=== PATIENT | female | born 1970 | race Caucasian/White ===

== ENCOUNTER → 2020-05-02 | Outpatient (CLI) | payer OTHER ==
--- NOTE | 2020-05-28 08:10 | SLEEP ---
[address] [address] SLEEP STUDY REPORT Name: MIRIAM GONZALEZ [id number] Admission: 05/02/20 Attend Phys: Lise Retana Discharge: Date of : 72 Report #: [id number] THIS REPORT FOR: cc: Darline Montoya Linda J. DO ~ Pervez, Adeel MD This study has been reviewed in its entirety by a board certified sleep specialist DATE OF SERVICE: 05/03/2020 SLEEP STUDY INTERPRETATION: Total duration of the study is 501 minutes. During this time duration, we recorded multiple sleep related respiratory events. These included 73 hypopneas in addition to 10 obstructive apneas with an overall apnea-hypopnea index of 11. Body position data indicates the patient was lying on the right side throughout the sleep study. There were also several desaturations recorded. Overall, the patient did spend 9.4 minutes below an O2 saturation of 90%, but only 0.8 minutes were spent below an O2 saturation of 88%. Mean heart rate was 68. IMPRESSION: Mild obstructive sleep apnea with an apnea-hypopnea index of 11.0 with mild nocturnal hypoxemia as described above. The patient is noted to be lying on the right side throughout the sleep study. RECOMMENDATIONS: Recommend proceeding to positive airway pressure therapy while asleep. Options include proceeding to a repeat sleep study in the sleep lab for positive airway pressure titration or the use of a CPAP auto titrated device. Clinical correlation is advised. In some selected patients, the use of a mandibular advancement device can also be considered; however, this is likely to be less effective. <ELECTRONICALLY SIGNED> By: Uday Gomez MD 05/28/20 0810 [id number] 1830Uday Gomez MD /nt
== END ==
LOC: M.PUL 12:53
PROVIDERS: ATTEND Family Medicine
DX: G47.33 Obstructive sleep apnea (adult) (pediatric) (principal); G47.9 Sleep disorder, unspecified; R00.2 Palpitations